=== PATIENT | female | born 1975 | race Caucasian/White ===

== ENCOUNTER 2016-06-14 16:30 | Inpatient (IN) | payer BC, OTHER ==
[2016-06-14] MEDS ORDERED: Penicillin G Potassium IV* 5,000,000 UNITS in NS 0.9% 100 ML* 100 ML IVPB ONE (17:23)
[2016-06-14 17:41] LABS: ROM Internal QC QC Line Present
[2016-06-14 17:58] LABS: Hematocrit 35 % (35-47); Hemoglobin 11.4 g/dl (12.0-16.0); Mean Corpuscular HGB Conc 32 g/dl (31-36); Mean Corpuscular Hemoglobin 26 pg (27-31); Mean Corpuscular Volume 79 fL (80-97); Mean Platelet Volume 8 um3 (7.4-10.4); Red Blood Count 4.47 10^6/ul (4.0-5.4); Red Cell Distribution Width 15 % (10.5-15); White Blood Count 13.8 10^3/ul (3.5-10.8)
[2016-06-14] MEDS ORDERED: Penicillin G Potassium IV* 2,500,000 UNITS in NS 0.9% 100 ML* 100 ML IVPB SCH ×2 (18:00→22:00)
[2016-06-14] MEDS ORDERED: Acetaminophen TAB* 325 MG PO PRN (23:02)
[2016-06-14] MEDS ORDERED: Dibucaine 1% 28.35 GM TUBE PR PRN (23:02)
[2016-06-14] MEDS ORDERED: Glycerin ADULT SUPP PR PRN (23:02)
[2016-06-14] MEDS ORDERED: oxyCODONE/Acetamin 5/325 MG* TAB PO PRN (23:02)
[2016-06-14] MEDS ORDERED: Witch Hazel PAD* JAR TOPICAL PRN (23:02)
[2016-06-15] MEDS: Ibuprofen TAB* 600 MG PO PRN ×3 (01:12→16:04)
[2016-06-15] MEDS ORDERED: Calcium Carbonate CHEW TAB* 500 MG (TUMS) PO PRN (05:57)
[2016-06-15] MEDS ORDERED: Calcium Carbonate CHEW TAB* 500 MG (TUMS) ONE (06:17)
[2016-06-15 06:57] LABS: Hematocrit 33 % (35-47); Hemoglobin 11.1 g/dl (12.0-16.0); Mean Corpuscular HGB Conc 33 g/dl (31-36); Mean Corpuscular Hemoglobin 26 pg (27-31); Mean Corpuscular Volume 78 fL (80-97); Mean Platelet Volume 8 um3 (7.4-10.4); Red Blood Count 4.29 10^6/ul (4.0-5.4); Red Cell Distribution Width 15 % (10.5-15); White Blood Count 14.4 10^3/ul (3.5-10.8)
[2016-06-15] MEDS: Docusate CAP* 100 MG PO SCH ×3 (08:25→21:00)
[2016-06-15] MEDS ORDERED: Simethicone TAB* 80 MG TAB.CHEW PO SCH (08:30)
[2016-06-15] MEDS ORDERED: Ferrous Gluconate TAB* 324 MG TAB PO SCH (09:00)
[2016-06-16 08:11] VITALS: BP 109/69
[2016-06-16] MEDS: Ibuprofen TAB* 600 MG PO PRN ×2 (08:21→15:31)
[2016-06-16] MEDS: Docusate CAP* 100 MG PO SCH ×2 (08:23→15:31)
== END 2016-06-16 18:48 | disposition home or self-care (01) | DRG 775 ==
LOC: MCHOBOUT 16:30 → MCHOB 17:26
PROVIDERS: ADMIT Midwife; ATTEND Midwife
PROC: 10E0XZZ Delivery of Products of Conception, External Approach (ICD-10-PCS; principal; 2016-06-14)
PROC: 0KQM0ZZ Repair Perineum Muscle, Open Approach (ICD-10-PCS; 2016-06-14)
DX: O48.0 Post-term pregnancy (principal); O99.824 Streptococcus B carrier state complicating childbirth; O70.1 Second degree perineal laceration during delivery; O09.523 Supervision of elderly multigravida, third trimester; Z3A.41 41 weeks gestation of pregnancy; Z37.0 Single live birth
CPT/HCPCS: 36415; 84112; 85025; 86850; 86900; 86901; A9270-GY; J2540